=== PATIENT | male | born 1990 | race Two or more races ===

== ENCOUNTER 2017-07-26 20:01 | Emergency (ER) | payer SELFPAY ==
[~2017-07-26] VITALS: Ht 182.9 cm; Wt 100.0 kg
[2017-07-26 20:28] VITALS: BP 129/81
[2017-07-26 20:52] LABS: BASOPHILS % 0.5 % (0.0-2.0); EOSINOPHILS % 1.3 % (0.0-5.0); HEMATOCRIT. 48.4 % (42.0-52.0); HEMOGLOBIN. 16.9 g/dL (14.0-18.0); LYMPHOCYTES % 22.1 % (20.0-50.0); MEAN CORPUSCULAR HEMOGLOBIN 30.6 pg (28.0-32.0); MEAN CORPUSCULAR VOLUME 87.9 fL (80.0-94.0); MEAN PLATELET VOLUME 9.9 fl (7.4-10.4); MONOCYTES % 8.3 % (2.0-8.0); NEUTROPHILS % 67.8 % (40.0-76.0); PLATELET 297 x1000/uL (130-400); RED BLOOD CELL COUNT 5.51 mill/uL (4.7-6.1); RED CELL DISTRIBUTION WIDTH 13.9 % (11.6-14.6)
[2017-07-26 20:53] LABS: CHLORIDE 102 mEq/L (98-107)
[2017-07-26 20:54] LABS: INR 1.1; PROTHROMBIN TIME 11.9 sec (9.4-11.6)
== END 2017-07-27 00:06 | disposition left against medical advice (07) ==
LOC: ER 20:01
DX: R10.9 Unspecified abdominal pain (principal)
CPT/HCPCS: 36415; 80053; 83690; 85025; 85610; 99284